=== PATIENT | female | born 1970 | race African-American/Black ===

== ENCOUNTER 2020-01-18 14:14 | Emergency (ER) | payer BC ==
[~2020-01-18] VITALS: Ht 154.9 cm; Wt 85.7 kg
--- NOTE | 2020-01-18 14:44 | Emergency Room Report ---
History of Present Illness General Chief Complaint: Chest Pain Source: Patient Present Illness HPI 49-year-old female with a history of hypertension here with chest pain. The patient says that 6 days ago she underwent a fibroid embolization done at an outpatient fibroid treatment [facility] surgery center. She says that the operation went well without any complications. However 2 days later she began to have chest tightness and chest pain that was worse on deep inspiration. Had a mild dry cough that has resolved. Has been complaining of mild bilateral leg tenderness as well. Denies leg swelling. No long car rides or plane rides. Does not smoke. No fevers, chills, shortness of breath, back pain, abdominal pain, nausea, vomiting, diarrhea, dysuria, hematuria, vaginal bleeding. Has not taken any medications for the pain. Pain is worse on exertion. Says that yesterday she also felt mildly lightheaded as well. No syncopal episodes. Allergies: Coded Allergies: No Known Allergies (Unverified , 01/18/20) COVID-19 Screening Contact w/high risk pt: No Experienced COVID-19 symptoms?: No COVID-19 Testing performed MEDIA AID: Yes COVID-19 Screening: Negative COVID-19 COVID-19 Testing Source: [facility] Patient History Last Menstrual Period: irreg Now: No Nursing Documentation-[facility] Past Medical History: No History, Except For Hx Hypertension: Yes Review of Systems All Other Systems: negative except mentioned in HPI Physical Exam Vital Signs Date Time Temp Pulse Resp B/P (MAP) Pulse Ox O2 Delivery O2 Flow Rate FiO2 01/18/20 14:20 96.8 54 20 136/83 (100) 95 Room Air Sp02 EP Interpretation: reviewed, normal General Appearance: no apparent distress, alert, GCS 15, non-toxic Head: normocephalic, atraumatic Eyes: bilateral eye normal inspection, bilateral eye PERRL ENT: hearing grossly normal, normal pharynx, no angioedema, normal voice Neck: full range of motion, supple/symm/no masses Respiratory: chest non-tender, lungs clear, normal breath sounds, speaking full sentences Cardiovascular #1: regular rate, rhythm, no edema Cardiovascular #2: 2+ carotid (R), 2+ carotid (L), 2+ radial (R), 2+ radial (L), 2+ dorsalis pedis (R), 2+ dorsalis pedis (L) Gastrointestinal: normal bowel sounds, non tender, soft, non-distended, no guarding, no rebound Rectal: deferred Genitourinary: normal inspection, no CVA tenderness Musculoskeletal: back normal, normal range of motion, gait/station normal, non- tender, other - Negative Homans sign. Negative straight leg raise test Neurologic: alert, motor strength/tone normal, oriented x3, sensory intact, responsive, speech normal Psychiatric: judgement/insight normal, memory normal, mood/affect normal, no suicidal/homicidal ideation Lymphatic: no adenopathy Medical Decision Making Diagnostic Impression: Primary Impression: Chest pain ER Course EKG: NSR, 58 bpm., intervals WNL. No ectopy. Q waves in lead III Rhythm strip: patient monitored for arrhythmias - no malignant dysrhythmias, runs of PVCs, nor pauses noted Laboratory Tests Test 01/18/20 14:55 01/18/20 15:40 White Blood Count 9.1 K/UL (4.8-10.8) Red Blood Count 4.76 M/UL (4.20-5.40) Hemoglobin 12.8 G/DL (12.0-16.0) Hematocrit 39.5 % (37.0-47.0) Mean Corpuscular Volume 83 FL (80-99) Mean Corpuscular Hemoglobin 26.9 PG (27.0-31.0) L Mean Corpuscular Hemoglobin Concent 32.5 G/DL (32.0-36.0) Red Cell Distribution Width 13.2 % (11.6-14.8) Platelet Count 223 K/UL (150-450) Mean Platelet Volume 11.6 FL (6.5-10.1) H Neutrophils (%) (Auto) 57.7 % (45.0-75.0) Lymphocytes (%) (Auto) 32.8 % (20.0-45.0) Monocytes (%) (Auto) 6.0 % (1.0-10.0) Eosinophils (%) (Auto) 1.6 % (0.0-3.0) Basophils (%) (Auto) 1.8 % (0.0-2.0) Prothrombin Time 10.7 SEC (9.30-11.50) Prothrombin Time INR 1.0 (0.9-1.1) Activated Partial Thromboplast Time 24 SEC (23-33) D-Dimer 0.74 mg/L FEU (0.00-0.49) H Sodium Level 140 MMOL/L (136-145) Potassium Level 4.3 MMOL/L (3.5-5.1) Chloride Level 104 MMOL/L (98-107) Carbon Dioxide Level 26 MMOL/L (21-32) Anion Gap 10 mmol/L (5-15) Blood Urea Nitrogen 10 mg/dL (7-18) Creatinine 0.8 MG/DL (0.55-1.30) Estimated Glomerular Filtration Rate > 60 mL/min (>60) Glucose Level 84 MG/DL (74-106) Calcium Level 9.4 MG/DL (8.5-10.1) Total Bilirubin 0.5 MG/DL (0.2-1.0) Aspartate Amino Transferase (AST) 20 U/L (15-37) Alanine Aminotransferase (ALT) 32 U/L (12-78) Alkaline Phosphatase 90 U/L (46-116) Total Creatine Kinase 50 U/L (26-308) Troponin I 0.000 ng/mL (0.000-0.056) Pro-B-Type Natriuretic Peptide 42 pg/mL (0-125) Total Protein 8.1 G/DL (6.4-8.2) Albumin 3.8 G/DL (3.4-5.0) Globulin 4.3 g/dL Albumin/Globulin Ratio 0.9 (1.0-2.7) L Urine Color Yellow Urine Appearance Slightly cloudy Urine pH 5 (4.5-8.0) Urine Specific [place] 1.020 (1.005-1.035) Urine Protein 1+ (NEGATIVE) H Urine Glucose (UA) Negative (NEGATIVE) Urine Ketones 1+ (NEGATIVE) H Urine Blood 3+ (NEGATIVE) H Urine Nitrite Negative (NEGATIVE) Urine Bilirubin Negative (NEGATIVE) Urine Urobilinogen Normal MG/DL (0.0-1.0) Urine Leukocyte Esterase 1+ (NEGATIVE) H Urine RBC 2-4 /HPF (0 - 2) H Urine WBC 0-2 /HPF (0 - 2) Urine Squamous Epithelial Cells Moderate /LPF (NONE/OCC) H Urine Bacteria Few /HPF (NONE) Urine Mucus Moderate /LPF (NONE/OCC) H Chest x-ray: Indication chest pain. Lungs clear, no bony abnormalities, no air under the diaphragm, no consolidations CT angiography chest:Findings: There is suboptimal arterial opacification. No definite intraluminal filling defects to suggest acute pulmonary embolus are demonstrated, although small peripheral emboli could be missed. Normal caliber pulmonary arteries. No thoracic aortic aneurysm or dissection demonstrated. There is trace pleural fluid on the right. The left pleural space is clear. There is a tiny nodule along the right major fissure adjacent to the junction with the minor fissure, probably an intrafissural node. There are a few nonspecific subpleural opacities bilaterally. The heart size is normal. No pericardial effusion. No mediastinal or hilar mass or adenopathy. No axillary or chest wall mass or adenopathy. Included thyroid is unremarkable. The included upper abdominal anatomy is unremarkable. Impression: Suboptimal pulmonary arterial opacification. No gross large vessel pulmonary emboli demonstrated, small peripheral and bladder not completely excludable. Trace right pleural effusion 49-year-old female here with intermittent chest pain. Patient had an operation performed as an outpatient last week and says that she had felt some mild chest pain after that. The patient was hemodynamically stable in the emergency department and was ambulating throughout the ER and tolerating p.o. without any difficulty whatsoever. She said that she did not have any symptoms today at all. CBC and CMP unremarkable. Troponin negative. D-dimer however was above the cutoff for rule out of pulmonary embolism and so the patient underwent a CT angiography of the chest. There is not evidence of large pulmonary embolism felt there was suboptimal evaluation of the small pulmonary arterial branches. However given the patient's normal vital signs and lack of symptoms today this does not seem clinically relevant. I discussed the case with the patient's primary physician who agreed that the patient can follow-up as an outpatient. The patient was given very strict return precautions to come back to the emergency department with any chest pain, palpitations, shortness of breath, lightheadedness. She expressed understanding and was discharged. Last Vital Signs Date Time Temp Pulse Resp B/P (MAP) Pulse Ox O2 Delivery O2 Flow Rate FiO2 01/18/20 14:20 96.8 54 20 136/83 (100) 95 Room Air Ramon Huerta M.D. Jan 18, 2020 14:44
[2020-01-18] MEDS ORDERED: Aspirin Baby 81mg ORAL ONE (14:45)
[2020-01-18 15:18] VITALS: BP 136/83
[2020-01-18 15:28] LABS: BASOPHILS % (AUTO) 1.8 % (0.0-2.0); EOSINOPHILS % (AUTO) 1.6 % (0.0-3.0); HEMATOCRIT 39.5 % (37.0-47.0); HEMOGLOBIN 12.8 G/DL (12.0-16.0); LYMPHOCYTES % (AUTO) 32.8 % (20.0-45.0); MEAN CORPUSCULAR VOLUME 83 FL (80-99); NEUTROPHILS % (AUTO) 57.7 % (45.0-75.0); PLATELET COUNT 223 K/UL (150-450); RED BLOOD COUNT 4.76 M/UL (4.20-5.40); RED CELL DISTRIBUTION WIDTH 13.2 % (11.6-14.8); WHITE BLOOD COUNT 9.1 K/UL (4.8-10.8)
[2020-01-18 15:41] LABS: ANION GAP 10 mmol/L (5-15); BLOOD UREA NITROGEN 10 mg/dL (7-18); CALCIUM 9.4 MG/DL (8.5-10.1); CARBON DIOXIDE 26 MMOL/L (21-32); CHLORIDE 104 MMOL/L (98-107); CREATININE 0.8 MG/DL (0.55-1.30); POTASSIUM 4.3 MMOL/L (3.5-5.1); SODIUM 140 MMOL/L (136-145)
[2020-01-18 15:52] LABS: ALANINE AMINOTRANSFERASE 32 U/L (12-78); ALBUMIN 3.8 G/DL (3.4-5.0); ALBUMIN/GLOBULIN RATIO 0.9 (1.0-2.7); ALKALINE PHOSPHATASE 90 U/L (46-116); ASPARTATE AMINO TRANSFERASE 20 U/L (15-37); BILIRUBIN,TOTAL 0.5 MG/DL (0.2-1.0); CREATINE KINASE 50 U/L (26-308)
[2020-01-18] MEDS ORDERED: Omnipaque 350 100ml vial INJ PRN (16:00)
--- NOTE | 2020-01-18 16:30 | NUR ---
ED Nurse Note:pt. was sent by her PMD for eval due to chest pain yesterday, today no chest pain complain
[2020-01-18 16:57] LABS: APPEARANCE,URINE SLIGHTLY CLOUDY; BILIRUBIN, URINE NEGATIVE (NEGATIVE); GLUCOSE, URINE (UA) NEGATIVE (NEGATIVE); KETONES,URINE 1+ (NEGATIVE); LEUKOCYTE ESTERASE ,URINE 1+ (NEGATIVE); NITRITE,URINE NEGATIVE (NEGATIVE); PH,URINE 5 (4.5-8.0); PROTEIN,URINE 1+ (NEGATIVE); UROBILINOGEN,URINE NORMAL MG/DL (0.0-1.0)
[2020-01-18 16:59] LABS: COLOR,URINE YELLOW
--- NOTE | 2020-01-18 17:56 | Diagnostic Imaging Report ---
ndication: Chest pain Technique: IV administration nonionic contrast. Spiral acquisitions obtained from the lung bases to the lung apices. Multiplanar and 3-D reconstructions were generated. Total dose length product 281 mGycm. CTDIvol(s) 47, 8, 1.8, 1.8 mGy. Dose reduction achieved using automated exposure control Comparison: none Findings: There is suboptimal arterial opacification. No definite intraluminal filling defects to suggest acute pulmonary embolus are demonstrated, although small peripheral emboli could be missed. Normal caliber pulmonary arteries. No thoracic aortic aneurysm or dissection demonstrated. There is trace pleural fluid on the right. The left pleural space is clear. There is a tiny nodule along the right major fissure adjacent to the junction with the minor fissure, probably an intrafissural node. There are a few nonspecific subpleural opacities bilaterally. The heart size is normal. No pericardial effusion. No mediastinal or hilar mass or adenopathy. No axillary or chest wall mass or adenopathy. Included thyroid is unremarkable. The included upper abdominal anatomy is unremarkable. Impression: Suboptimal pulmonary arterial opacification. No gross large vessel pulmonary emboli demonstrated, small peripheral and bladder not completely excludable. Trace right pleural effusion Incidental findings as noted The CT scanner at [facility] is accredited by the [employer] and the scans are performed using protocols designed to limit radiation exposure to as low as reasonably achievable to attain images of sufficient resolution adequate for diagnostic evaluation.
[2020-01-18 18:20] VITALS: BP 136/83
--- NOTE | 2020-01-18 18:20 | NUR ---
ER DISCHARGE NOTE: Patient is cleared to be discharged per ERMD, pt is aox4, on room air, with stable vital signs. pt was given dc and prescription instructions, pt was able to verbalize understanding, pt id band and iv site removed without complications. pt is able to ambulate with steady gait. pt took all belongings.
--- NOTE | 2020-01-18 18:58 | Diagnostic Imaging Report ---
Indication: Chest pain Technique: One view of the chest Comparison: none Findings: Lungs and pleural spaces are clear. Heart size is normal. Impression: No acute process
--- NOTE | 2020-01-19 17:44 | Cardiology Report ---
APPROVED REPORT EKG Measurement Heart [id number] <Conclusion> Sinus bradycardia Otherwise normal ECG
== END 2020-01-18 18:20 | disposition home or self-care (01) ==
LOC: EDBD 14:14 → EMR 15:00
DX: R07.9 Chest pain, unspecified (principal); I10 Essential (primary) hypertension; R05 Cough; M79.605 Pain in left leg; M79.604 Pain in right leg; J90 Pleural effusion, not elsewhere classified
CPT/HCPCS: 36415; 71045; 71275; 80053; 81003; 82550; 83880; 84484; 85025; 85379; 85610; 85730; 93005; 99284; Q9967